=== PATIENT | male | born 1970 | race Caucasian/White ===

== ENCOUNTER 2016-11-20 17:36 | Inpatient (IN) | payer BC ==
[~2016-11-20] VITALS: Ht 170.2 cm; Wt 80.5 kg
[2016-11-20] MEDS ORDERED: SODIUM CHLORIDE 0.9% 1000ML 1,000 ML IV STA (18:10)
[2016-11-20] MEDS ORDERED: MoRPHine SULFATE 2 MG/ML CARP IV STA (18:10)
[2016-11-20] MEDS ORDERED: ONDANSETRON INJ 2 MG/ML 2 ML VIAL IV STA (18:10)
[2016-11-20] MEDS ORDERED: ACETAMINOPHEN IV 650 MG in EMPTY BAG 0 ML IV ONE (18:15)
[2016-11-20] MEDS ORDERED: PIPERACILLIN/TAZOBACTAM 4.5 GM/100ML D5W IV STA (18:20)
[2016-11-20] MEDS ORDERED: OPTIRAY 320 IV PRN (18:30)
--- NOTE | 2016-11-20 18:36 | DIAGNOSTIC IMAGING REPORT ---
CHEST ONE VIEW PORTABLE CLINICAL HISTORY: epigastric abd pain/cough dyspnea COMPARISON STUDY: No previous studies for comparison. FINDINGS: Right upper lobe infiltrate. Lungs otherwise appear clear. Minimal atelectasis left base. IMPRESSION: Right upper lobe infiltrate Electronically signed by: Julian Singh M.D. 11/20/2016 6:35 PM Dictated Date/Time: 11/20/2016 6:35 PM
[2016-11-20 18:42] LABS: BASO % 0.1 %; BASO ABS # 0.01 K/uL (0-0.2); COMPLETE YES; EOS % 0.1 %; HEMATOCRIT 38.7 % (42-52); IG% 0.3 %; LYMPH ABS # 0.94 K/uL (1.2-3.4); MEAN CELL VOLUME 87.4 fL (80-100); MEAN CORPUSCULAR HEMOGLOBIN 31.2 pg (25-34); MEAN CORPUSCULAR HGB CONC 35.7 g/dl (32-36); MEAN PLATELET VOLUME 9.6 fL (7.4-10.4); MONO % 9.3 %; NEUT % 82.2 %; PLATELET COUNT 268 K/uL (130-400); RED BLOOD COUNT 4.43 M/uL (4.7-6.1); WHITE BLOOD COUNT 11.78 K/uL (4.8-10.8)
[2016-11-20 18:53] LABS: ISTAT CREATININE 0.9 mg/dl (0.6-1.3); ISTAT HEMOGLOBIN 13.9 g/dl (14.0-18.0); ISTAT IONIZED CALCIUM 1.19 mmol/l (1.12-1.32)
[2016-11-20 18:57] LABS: INR 1.1 (0.9-1.1); PARTIAL THROMBOPLASTIN RATIO 1.2; PROTHROMBIN TIME (PATIENT) 11.3 SECONDS (9.0-12.0)
[2016-11-20 19:00] LABS: ALT/SGPT 50 U/L (12-78); AST/SGOT 27 U/L (15-37); BLOOD UREA NITROGEN 13 mg/dl (7-18); BUN/CREATININE RATIO 11.9 (10-20); CALCIUM 9.3 mg/dl (8.5-10.1); CARBON DIOXIDE 26 mmol/L (21-32); CHLORIDE 101 mmol/L (98-107); GLUCOSE 103 mg/dl (70-99); MAGNESIUM 2.1 mg/dl (1.8-2.4); POTASSIUM 3.9 mmol/L (3.5-5.1); SODIUM 136 mmol/L (136-145)
[2016-11-20] MEDS ORDERED: CLINDAMYCIN IV 900 MG in DEXTROSE 5% ADD-VANTAGE 100ML 100 ML IV ONE (19:00)
[2016-11-20 19:03] LABS: ALB/GLOB RATIO 0.9 (0.9-2); ALKALINE PHOSPHATASE 64 U/L (45-117)
--- NOTE | 2016-11-20 20:15 | DIAGNOSTIC IMAGING REPORT ---
ABDOMEN AND PELVIS CT WITH IV CONTRAST CT DOSE: HISTORY: Pain. Nausea. diffuse abd pain w/ guarding TECHNIQUE: Multiaxial CT images of the abdomen and pelvis were performed following the use of intravenous contrast. COMPARISON STUDY: None. FINDINGS: Trace pleural fluid and atelectasis right base. Left base is clear. Liver is uniform throughout. Kidneys are negative for hydronephrosis. Pancreas is uniform. Abdominal bowel pattern is nonobstructive. The appendix is normal. Subtle wall thickening of the sigmoid suggesting a low-grade sigmoid colitis. No evidence for abscess collection or obstruction. No evidence for pneumatosis. IMPRESSION: Mild nonspecific sigmoid colitis. 2. Study is otherwise negative. 3. The appendix is normal. Electronically signed by: Julian Singh M.D. 11/20/2016 8:13 PM Dictated Date/Time: 11/20/2016 8:11 PM
--- NOTE | 2016-11-20 20:19 | DIAGNOSTIC IMAGING REPORT ---
CHEST CTA for PULMONARY ARTERIES CT DOSE: 732.72 mGy.cm HISTORY: Pneumonia cough TECHNIQUE: Multiaxial CT images of the chest were performed following the intravenous administration of contrast to evaluate the pulmonary arteries. Maximal intensity projection images were also obtained. COMPARISON STUDY: Chest films same date FINDINGS: Consolidative right upper lobe infiltrate. Lung bases are clear. Slight bibasilar interstitial prominence. Trace pleural fluid right base. Thoracic aorta is normal in course and caliber. Pulmonary vasculature enhances appropriately. Slight bibasilar interstitial prominence. IMPRESSION: 1. Study is negative for pulmonary embolus. 2. Negative thoracic aorta. 3. Consolidative infiltrate right upper lobe. 4. Slight bibasilar interstitial prominence. 5. The consolidative infiltration be followed to resolution to exclude the low possibility of an underlying lesion Electronically signed by: Julian Singh M.D. 11/20/2016 8:17 PM Dictated Date/Time: 11/20/2016 8:14 PM
[2016-11-20] MEDS ORDERED: AZITTAB PO (21:02)
[2016-11-20] MEDS ORDERED: BISM262T3 PO (21:02)
[2016-11-20 22:21] LABS: URINE APPEARANCE CLEAR (CLEAR); URINE BILIRUBIN NEG (NEG); URINE COLOR YELLOW; URINE NITRITE NEG (NEG); URINE PH 6.5 (4.5-7.5); URINE SPECIFIC GRAVITY > 1.045 (1.000-1.030); UROBILINOGEN NEG (NEG); ZZUR CULT IF INDIC CLEAN CATCH NO
[2016-11-20 22:35] LABS: MANUAL MICROSCOPIC REQUIRED? NO; REVIEW REQ? NO
[2016-11-20] MEDS ORDERED: ALBUT/IPRATROP 3MG/0.5MG NEB 3 ML VIAL INH PRN (22:45)
[2016-11-20] MEDS ORDERED: ACETAMINOPHEN 325 MG TAB PO PRN (22:45)
[2016-11-20] MEDS ORDERED: ZOLPIDEM TARTRATE 5 MG TAB PO PRN (22:45)
[2016-11-20] MEDS ORDERED: ONDANSETRON INJ 2 MG/ML 2 ML VIAL IV PRN (22:45)
[2016-11-20] MEDS ORDERED: MAGNESIUM HYDROXIDE SUSP 30 ML UDC PO PRN (22:45)
[2016-11-20] MEDS ORDERED: ALUMINUM/MAGNESIUM/SIMETH (MAALOX MAX) 30 ML UDC PO PRN (22:45)
--- NOTE | 2016-11-20 23:03 | History and Physical ---
History & Physical Date & Time of Service: Nov 20, 2016 at 22:46 Chief Complaint: Body Ache, Fever, Severe Abdominal Pain Primary Care Physician: Celi Srinivasan M.D. History of Present Illness Source: patient 46 y/o M who denies any active medical issues. Pt developed abdominal pain and intense nausea without vomiting 3 days prior. Around the same time he developed a cough and fever and presented to an urgent care center. He was given Zithromax for a presumed URI and sent home. Over the next 2 days his abdominal pain and nausea persisted while his cough and fever appeared to worsen prompting him to visit the ER. A CT of both the chest and abdomen revealed mild sigmoid colitis and a R upper lobe consolidation. The pt is not significantly SOB. He denies diarrhea or constipation. He does not recall any regurgitation or aspiration. He is admitted primarily for a pneumonia that has failed outpt treatment. 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 Smoking Status: Never Smoker Alcohol Use: occasionally Drug Use: none Occupational Status: employed Multi-Drug Resistant Organisms History of MDRO: No Allergies Coded Allergies: No Known Allergies (Unverified , 11/20/16) Home Medications Scheduled Azithromycin (Zithromax Z-Donnell), 1 PKT PO UD Bismuth Subsalicylate (Pepto Bismol Chew Tab), 2 TAB PO PRN UD Review of Systems Constitutional: + chills, + fatigue, + fever, No sweats, No weight loss Eyes: No eye pain, No worsening of vision ENT: No hearing loss, No nasal symptoms, No unusual epistaxis Respiratory: + cough, + sputum, No shortness of breath, No wheezing Cardiovascular: No PND, No chest pain, No orthopnea Abdomen: + nausea, + pain, No constipation, No diarrhea, No vomiting Musculoskeletal: No joint pain, No muscle pain Genitourinary - Male: No dysuria, No hematuria Neurologic: No memory loss, No paralysis, No weakness Psychiatric: No depression symptoms Endocrine: No fatigue Hematologic / Lymphatic: No abnormal bleeding/bruising Integumentary: No rash Allergic / Immunologic: No environmental allergies Physical Exam Vital Signs Date Time Temp Pulse Resp B/P Pulse Ox O2 Delivery O2 Flow Rate FiO2 11/20/16 21:40 37.2 79 20 111/68 97 Room Air 11/20/16 20:18 86 11/20/16 19:30 89 20 130/84 97 Room Air 11/20/16 18:23 97 11/20/16 17:48 38.7 101 20 112/75 97 Room Air General Appearance: WD/WN, no apparent distress Head: normocephalic, atraumatic Eyes: normal inspection, EOMI ENT: normal ENT inspection, pharynx normal Neck: supple, no JVD Respiratory/Chest: chest non-tender, lungs clear, normal breath sounds, no respiratory distress, no accessory muscle use Cardiovascular: regular rate, rhythm, no edema, no gallop, no JVD, no murmur, normal peripheral pulses Abdomen/GI: normal bowel sounds, non tender, soft, + tenderness (diffuse - mild ) Back: normal inspection, no CVA tenderness Extremities/Musculoskelatal: normal inspection, no calf tenderness, normal capillary refill, no pedal edema, normal range of motion Neurologic/Psych: 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 II-XII nml as tested, no motor/sensory deficits, alert, normal mood/affect, normal reflexes, oriented x 3 Skin: normal color, warm/dry, no rash Diagnostics Laboratory Results Results Past 24 Hours Test 11/20/16 18:18 11/20/16 18:25 11/20/16 18:31 11/20/16 18:35 Range/Units Influenza Type A Antigen Neg for Influ A NEG Influenza Type B Antigen Neg for Influ B NEG White Blood Count 11.78 4.8-10.8 K/uL Red Blood Count 4.43 4.7-6.1 M/uL Hemoglobin 13.8 14.0-18.0 g/dL Hematocrit 38.7 42-52 % Mean Corpuscular Volume 87.4 80-100 fL Mean Corpuscular Hemoglobin 31.2 25-34 pg Mean Corpuscular Hemoglobin Concent 35.7 32-36 g/dl Platelet Count 268 130-400 K/uL Mean Platelet Volume 9.6 7.4-10.4 fL Neutrophils (%) (Auto) 82.2 % Lymphocytes (%) (Auto) 8.0 % Monocytes (%) (Auto) 9.3 % Eosinophils (%) (Auto) 0.1 % Basophils (%) (Auto) 0.1 % Neutrophils # (Auto) 9.69 1.4-6.5 K/uL Lymphocytes # (Auto) 0.94 1.2-3.4 K/uL Monocytes # (Auto) 1.10 0.11-0.59 K/uL Eosinophils # (Auto) 0.01 0-0.5 K/uL Basophils # (Auto) 0.01 0-0.2 K/uL RDW Standard Deviation 38.9 36.4-46.3 fL RDW Coefficient of Variation 12.1 11.5-14.5 % Immature Granulocyte % (Auto) 0.3 % Immature Granulocyte # (Auto) 0.03 0.00-0.02 K/uL Erythrocyte Sedimentation Rate 60 0-14 mm/hr Prothrombin Time 11.3 9.0-12.0 SECONDS Prothromb Time International Ratio 1.1 0.9-1.1 Activated Partial Thromboplast Time 31.3 21.0-31.0 SECONDS Partial Thromboplastin Ratio 1.2 Sodium Level 136 136-145 mmol/L Potassium Level 3.9 3.5-5.1 mmol/L Chloride Level 101 98-107 mmol/L Carbon Dioxide Level 26 21-32 mmol/L Anion Gap 9.0 19.0 16-25 mmol/L Blood Urea Nitrogen 13 7-18 mg/dl Creatinine 1.10 0.60-1.40 mg/dl Est Creatinine Clear Calc Drug Dose 86.2 ml/min Estimated GFR () 93.5 Estimated GFR (Non- 80.6 BUN/Creatinine Ratio 11.9 10-20 Random Glucose 103 70-99 mg/dl Calcium Level 9.3 8.5-10.1 mg/dl Magnesium Level 2.1 1.8-2.4 mg/dl Total Bilirubin 0.5 0.2-1 mg/dl Aspartate Amino Transf (AST/SGOT) 27 15-37 U/L Alanine Aminotransferase (ALT/SGPT) 50 12-78 U/L Alkaline Phosphatase 64 45-117 U/L Total Creatine Kinase 103 39-308 U/L Creatine Kinase MB < 0.5 0.5-3.6 ng/ml Creatine Kinase MB Ratio 0-3.0 C-Reactive Protein 16.30 0-0.29 mg/dl Total Protein 8.1 6.4-8.2 gm/dl Albumin 3.9 3.4-5.0 gm/dl Globulin 4.2 2.5-4.0 gm/dl Albumin/Globulin Ratio 0.9 0.9-2 Lipase 79 73-393 U/L Bedside Lactic Acid Venous 0.85 0.90-1.70 mmol/L Bedside Hemoglobin 13.9 14.0-18.0 g/dl Bedside Hematocrit 41 42-52 % Bedside Sodium 136 135-144 mEq/L Bedside Potassium 3.9 3.3-5.0 mEq/L Bedside Chloride 98 101-112 mEq/L Bedside Total CO2 24 24-31 mEq/l Bedside Blood Urea Nitrogen 14 7-18 mg/dl Bedside Creatinine 0.9 0.6-1.3 mg/dl Bedside Glucose (other) 112 70-99 mg/dl Bedside Ionized Calcium (Juliet) 1.19 1.12-1.32 mmol/l Test 11/20/16 18:39 11/20/16 21:45 Range/Units Bedside Troponin I 0.010 0-0.045 ng/ml Urine Color YELLOW Urine Appearance CLEAR CLEAR Urine pH 6.5 4.5-7.5 Urine Specific Crockett > 1.045 1.000-1.030 Urine Protein NEG NEG Urine Glucose (UA) NEG NEG Urine Ketones TRACE NEG Urine Occult Blood NEG NEG Urine Nitrite NEG NEG Urine Bilirubin NEG NEG Urine Urobilinogen NEG NEG Urine Leukocyte Esterase NEG NEG Microbiology Results 11/20/16 Blood Culture, Received Pending 11/20/16 Blood Culture, Received Pending Diagnostic Radiology CT abdomen: Sigmoid colitis CT chest: RUL consolidation EKG NSR - incomplete RBBB Impression Assessment and Plan 46 y/o M who denies any active medical issues. Pt developed abdominal pain and intense nausea without vomiting 3 days prior. Around the same time he developed a cough and fever and presented to an urgent care center. He was given Zithromax for a presumed URI and sent home. Over the next 2 days his abdominal pain and nausea persisted while his cough and fever appeared to worsen prompting him to visit the ER. A CT of both the chest and abdomen revealed mild sigmoid colitis and a R upper lobe consolidation. The pt is not significantly SOB. He denies diarrhea or constipation. He does not recall any regurgitation or aspiration. He is admitted primarily for a pneumonia that has failed outpt treatment. 1) Pneumonia - failed outpt Zithromax - location of infiltrate is unusual - no inherent risk factors for TB are present. It may be that he aspirated without realizing or during sleep as he does describe intense nausea for three days. We will treat with Levaquin and Flagyl as this may benefit his colitis as well. Duonebs provided PRN. Sputum culture requested. 2) Sigmoid colitis - pain control, antiemetics, Abx as above - stool culute requested. Full code - Heparin prophylaxis Total time for this admit including review of records, labs, meds imaging - discussion with ER attending and pt - 35 min Level of Care Med/Surg Resuscitation Status FULL RESUSCITATION VTE Prophylaxis VTE Risk Assessment Done? Y/N: Yes Risk Level: Low Given or contraindicated: Unfractionated heparin SQ
[2016-11-20] MEDS ORDERED: MoRPHine SULFATE 2 MG/ML CARP IV PRN (23:15)
[2016-11-21] MEDS ORDERED: METRONIDAZOLE / NSS 500 MG in PREMIXED NSS 100 ML IV SCH (02:30)
[2016-11-21] MEDS ORDERED: POLYETHYLENE (MIRALAX) 17 GM PACK PO PRN (02:30)
[2016-11-21] MEDS: NSS + 20MEQ KCL 1000ML 1,000 ML IV SCH ×2 (02:39→11:09)
[2016-11-21] MEDS ORDERED: LEVOFLOXACIN / D5W 750 MG in PREMIXED IN D5W 150 ML IV SCH (03:00)
[2016-11-21 04:27] VITALS: BP 146/86; PULSE 71; TEMP 36.7; Ht 170.2 cm; Wt 80.5 kg
[2016-11-21] MEDS ORDERED: HEPARIN SOD 5000 UNIT/0.5 ML CARP SQ SCH (06:00)
[2016-11-21 07:41] VITALS: BP 121/78; PULSE 85; TEMP 36.9; O2SAT 94
[2016-11-21] MEDS ORDERED: PANTOprazole SOD 40 MG TAB PO ONE (09:30)
[2016-11-21] MEDS ORDERED: RANITIDINE HCL 150 MG TAB PO ONE (09:30)
[2016-11-21 10:03] VITALS: O2SAT 94
[2016-11-21 11:10] VITALS: BP 123/80; PULSE 72; TEMP 37; O2SAT 99
[2016-11-21] MEDS ORDERED: LVQ750 PO (12:13)
[2016-11-21 12:21] VITALS: BP 123/80; PULSE 72; TEMP 37; O2SAT 99
[2016-11-21] MEDS ORDERED: NURSING VERBAL MED ORDER ONE (12:45)
[2016-11-21] MEDS ORDERED: IPRATROPIUM BROMIDE/ALBUTEROL respimat INH INH SCH (14:30)
--- NOTE | 2016-11-21 15:02 | Discharge Instructions ---
Discharge Instructions Admission Reason for Admission: Pneumonia (Jonatan Goel MD) Discharge Discharge Diagnosis / Problem: Community acquired pneumonia (Jonatan Goel MD) Discharge Goals Goal(s): Decrease discomfort, Increase independence (Jonatan Goel MD) Activity Recommendations Activity Limitations: per Instructions/Follow-up section Rest recommended for 1 week, keep hydrated. (Jonatan Goel MD) Instructions / Follow-Up Instructions / Follow-Up You were admitted to [facility] and diagnosed with community acquired pneumonia with CXR and CT scan consistent with right upper lobe pneumonia. No pulmonary embolism was found. You were treated initially with IV antibiotics and have now been switched to oral levaquin to complete a full course. You have also been prescribed a Combivent inhaler which you should take as required for cough, chest tightness or wheezing. For your epigastric pain this is most likely stress induced gastritis and we recommend taking zantac for this and follow up with your PCP. CT of your abdomen also showed non specific colitis presumed to be infective. Stool cultures are pending at discharge. Recommend follow up with your PCP regarding this. Recommend rest for the next 7 days, keeping well hydrated and follow up with your PCP within the next week. Recommend a repeat CXR to show complete resolution in 8 weeks given large amount of consolidation seen. (Jonatan Goel MD) Current Hospital Diet Patient's current hospital diet: Regular Diet (Jonatan Goel MD) Discharge Diet Recommended Diet: Regular Diet (Jonatan Goel MD) Pending Studies Studies pending at discharge: yes List of pending studies: Urine legionella Blood cultures Sputum culture Stool culture (Jonatan Goel MD) Work Instructions Return To Work: 1 week Lifting Limitations: none Additional Instructions: Keep well hydrated and rest for 1 week. Pneumonia takes weeks to fully recover from so recommend gradual return to more intense activty after 1 week. (Jonatan Goel MD) Medical Emergencies . Who to Call and When: Medical Emergencies: If at any time you feel your situation is an emergency, please call 911 immediately. . (Jonatan Goel MD) Non-Emergent Contact Non-Emergency issues call your: Primary Care Provider . (Jonatan Goel MD) . "Provider Documentation" section prepared by Jonatan Goel. (Jonatan Goel MD) Attending Attestation: Pt seen & examined with PGY2 Dr. Jonatan Goel on the day of discharge and I agree with his discharge instructions as outlined. Jonatan Casillas MD (Jonatan Casillas MD) VTE Core Measure Inpt VTE Proph given/why not?: Refusal of treatmnt by pt (Jonatan Goel MD)
[2016-11-21] MEDS ORDERED: RANI150T3 PO (15:09)
[2016-11-21] MEDS ORDERED: IPRA1AER2 INH (15:10)
--- NOTE | 2016-11-21 18:28 | Discharge Summary ---
Discharge Summary Admission Date: Nov 20, 2016 at 22:38 Discharge Date: Nov 21, 2016 Discharge Disposition: Home Principal Diagnosis: Community Acquired Pneumonia Problems/Secondary Diagnoses: Probable stress induced gastritis Mild non specific sigmoid colitis (Jonatan Goel MD) Procedures: CT chest - IMPRESSION: 1. Study is negative for pulmonary embolus. 2. Negative thoracic aorta. 3. Consolidative infiltrate right upper lobe. CT abd/pelvis - sigmoid colitis (Jonatan Casillas MD) Medication Reconciliation New Medications: Ranitidine Hcl (Zantac) 150 Mg Tab 1 TAB PO BID for 30 Days, #60 TAB 5 Refills Ipratropium-Albuterol (Combivent Respimat) 1 Aer Aer 1 PUFFS INH QID, #1 Use for chest tightness, cough or wheezing Levofloxacin (Levofloxacin) 750 Mg Tab 750 MG PO DAILY@2200 for 9 Days, TAB Continued Medications: Bismuth Subsalicylate (Pepto Bismol Chew Tab) 262 Mg Tab 2 TAB PO PRN UD, TAB Discontinued Medications: Azithromycin (Zithromax Z-Donnell) 250 Mg Tab 1 PKT PO UD for 5 Days, #1 PKT Discharge Exam No acute issues overnight. He feels much better this morning and ordered regular diet. Tolerated the diet well without any nausea or vomiting and keen to go home. He is a non smoker with no known lung disease, no recent travel Hx or exposure to people with pneumonia. Physical Exam: General Appearance: WD/WN, no apparent distress Respiratory/Chest: no respiratory distress, no accessory muscle use, + crackles (right mid zone) Cardiovascular: regular rate, rhythm, no murmur Abdomen / GI: normal bowel sounds, soft, + tenderness (epigastric tenderness ) Extremities: no pedal edema, normal range of motion Neurologic/Psychiatric: alert Skin: normal color, warm/dry, no rash (Jonatan Goel MD) Hospital Course Mr Ballard was admitted to [facility] for fever and cough. He failed O/P treatment with azithromycin for presumed URI. CTPA showed right upper lobe consolidation, no pulmonary embolism. He was also have abdominal pain and CT showed mild non specific sigmoid colitis. He was treated overnight with IV fluids and Levaquin (initial antibiotics vancomycin and Zosyn were d/c' d after first dose). He recovered well overnight and is now keen to go home and medically stable for discharge. He was started on a Combivent inhaler to help aerate his lungs and should continue to use the incentive spirometer. He will complete a full course of Levaquin and was recommended to take a week off work, keep hydrated and rest. Recommended to follow up with his PCP within the next week. Recommend given extent of consolidation to have a CXR to test to clear in approximately 8 weeks. Total Time Spent: Less than 30 minutes This includes examination of the patient, discharge planning, medication reconciliation, and communication with other providers. (Jonatan Goel MD) Resident Physician Supervision Note: I was present with PGY2 Dr. Jonatan Goel during the discharge history and exam. I discussed the case with the resident and agree with the findings and plan as documented in this discharge summary. Any exceptions or clarifications are listed here: none. 46yo male with no PMH who presented with a febrile illness of several days duration and was found to have a RUL pneumonia. He denied any recent travel, sick contacts, HIV risk factors, chronic lung disease, or any recent weight loss/chronic constitutional symptoms. He quickly improved with IV fluids and IV antibiotics. He will discharge to home with a course of levaquin. Urine for legionella was pending at discharge. In light of the unusual location and consolidative nature of the RUL pneumonia along with his young age he was counseled about the importance of a repeat cxr and/or CT chest in 4-6 weeks to ensure there is radiographic resolution of the pneumonia. He voiced understanding. discharge exam: gen - nontoxic, NAD heart - RRR, s1, s2 lungs - rales RUL, minimal end-exp wheezing b/l abd - soft, no HSM Documented By: Jonatan Casillas MD (Jonatan Casillas MD) Discharge Instructions Please refer to the electronic Patient Visit Report (Discharge Instructions) for additional information. (Jonatan Goel MD) Follow-Up Follow up with his PCP within the next week. (Jonatan Goel MD) Additional Copies To Celi Srinivasan M.D. Resident Tracking Resident Involvement: Resident Care Provided Care Provided: Adult [facility] (Jonatan Goel MD)
[2016-11-21] MEDS ORDERED: RANITIDINE HCL 150 MG TAB PO SCH (20:00)
[2016-11-21] MEDS ORDERED: LEVOFLOXACIN 750 MG TAB PO SCH (22:00)
[2016-11-22] MEDS ORDERED: PANTOprazole SOD 40 MG TAB PO SCH (08:00)
--- NOTE | 2016-11-22 23:41 | EMERGENCY ROOM VISIT NOTE ---
History First contact with patient: 18:01 Chief Complaint: ABDOMINAL PAIN Stated Complaint: PNEUMONIA Nursing Triage Summary: melly with abdominal pain and head ache for two days. saw [facility] given z pack told if not better to come to er/ now with fever and abdominal pain worse History of Present Illness The patient is a 46 year old male who presents to the Emergency Department by private vehicle for evaluation of his fever, bodyaches, and abdominal pain. The patient reports that he developed epigastric abdominal pain since Friday. He is also headache headache. He developed a fever yesterday. He was seen at a walk-in clinic and had a chest x-ray performed as well as urinalysis. Chest x -ray was concerning for possible pneumonia. He was provided a Z-Donnell. The patient has been using ibuprofen for his fever with minimal relief of symptoms. He reports turning in his stomach and GERD-like symptoms as well. He reports reflux type symptoms when he lays flat. The patient reports a mild cough. He rates his current discomfort as an 8/10. He denies any dizziness, lightheadedness, palpitations, shortness of breath, hemoptysis, hematemesis, hematochezia, melena, hematuria, or dysuria. He rates his current discomfort as an 8/10. Review of Systems A complete 10-point Review of Systems was discussed with the patient, with pertinent positives and negatives listed in the History of Present Illness. All remaining Review of Systems questions can be considered negative unless otherwise specified. Past Medical/Surgical History Medical Problems: (1) Pneumonia Social History Smoking Status: Never Smoker Smokeless Tobacco Use: No Drug Use: none Marital Status: Housing Status: lives with family Occupation Status: employed Current/Historical Medications Scheduled Bismuth Subsalicylate (Pepto Bismol Chew Tab), 2 TAB PO PRN UD Ipratropium-Albuterol (Combivent Respimat), 1 PUFFS INH QID Levofloxacin (Levofloxacin), 750 MG PO DAILY@2200 Ranitidine Hcl (Zantac), 1 TAB PO BID Allergies Coded Allergies: No Known Allergies (Unverified , 11/20/16) Physical Exam Vital Signs Date Time Temp Pulse Resp B/P Pulse Ox O2 Delivery O2 Flow Rate FiO2 11/20/16 21:40 37.2 79 20 111/68 97 Room Air 2/15/17 20:18 86 11/20/16 19:30 89 20 130/84 97 Room Air 11/20/16 18:23 97 11/20/16 17:48 38.7 101 20 112/75 97 Room Air Pain Rating (0-10): 8 Physical Exam VITAL SIGNS - Vital signs and nursing notes were reviewed. GENERAL - 46-year-old male appearing his stated age who is in no acute distress. Communicates well with provider and answers questions appropriately. HEAD - NC/AT. EYES - PERRL with EOMI bilaterally. Sclera anicteric. Palpebral conjunctiva pink and moist with no injection noted. EARS - No deformities of external structures noted on gross examination bilaterally. No pain elicited with palpation of the tragus bilaterally. External auditory canals without discharge or otorrhea. Tympanic membranes pearly evans without retraction or bulging. NOSE - Midline and without cyanosis. No epistaxis or purulent drainage noted. Septum midline without deviation or septal hematoma noted. MOUTH/OROPHARYNX - Without perioral cyanosis. Buccal mucosa pink and moist and without leukoplakia. Tongue midline with equal elevation of palate bilaterally. No tonsillar hypertrophy, erythema, or exudates noted. Good dentition noted. NECK - Neck with FROM. Supple to palpation. No nuchal rigidity. LUNGS - Chest wall symmetric without accessory muscle use, intercostals retractions, or central cyanosis. Normal vesicular breath sounds CTA B/L. No wheezes, rales, or rhonchi appreciated. CARDIAC - RRR with S1/S2. No murmur, rubs, or gallops appreciated. ABDOMEN - Abdominal contour flat and without pulsations or visible masses. Negative Gautam's or Augustin Fonseca's Signs. BS normoactive all four quadrants. Moderate tenderness to palpation appreciated diffusely throughout the abdomen. Mild guarding. No Rebound Tenderness. Negative Rovsing's. Negative Barahona's. No palpable masses, hepatosplenomegaly, or ascites noted. EXTREMITIES - No clubbing or peripheral cyanosis. No pretibial edema present. +3 /5 radial and dorsalis pedis pulses palpated throughout. PSYCH - A&Ox3 and cooperates fully with examiner. Pt is very pleasant and interacts well with examiner. Medical Decision & Procedures ER Provider Diagnostic Interpretation: Radiological imaging and reports were reviewed by myself. Radiologist's Interpretation as follows: CHEST ONE VIEW PORTABLE CLINICAL HISTORY: epigastric abd pain/cough dyspnea COMPARISON STUDY: No previous studies for comparison. FINDINGS: Right upper lobe infiltrate. Lungs otherwise appear clear. Minimal atelectasis left base. IMPRESSION: Right upper lobe infiltrate CHEST CTA for PULMONARY ARTERIES CT DOSE: 732.72 mGy.cm HISTORY: Pneumonia cough TECHNIQUE: Multiaxial CT images of the chest were performed following the intravenous administration of contrast to evaluate the pulmonary arteries. Maximal intensity projection images were also obtained. COMPARISON STUDY: Chest films same date FINDINGS: Consolidative right upper lobe infiltrate. Lung bases are clear. Slight bibasilar interstitial prominence. Trace pleural fluid right base. Thoracic aorta is normal in course and caliber. Pulmonary vasculature enhances appropriately. Slight bibasilar interstitial prominence. IMPRESSION: 1. Study is negative for pulmonary embolus. 2. Negative thoracic aorta. 3. Consolidative infiltrate right upper lobe. 4. Slight bibasilar interstitial prominence. 5. The consolidative infiltration be followed to resolution to exclude the low possibility of an underlying lesion ABDOMEN AND PELVIS CT WITH IV CONTRAST CT DOSE: HISTORY: Pain. Nausea. diffuse abd pain w/ guarding TECHNIQUE: Multiaxial CT images of the abdomen and pelvis were performed following the use of intravenous contrast. COMPARISON STUDY: None. FINDINGS: Trace pleural fluid and atelectasis right base. Left base is clear. Liver is uniform throughout. Kidneys are negative for hydronephrosis. Pancreas is uniform. Abdominal bowel pattern is nonobstructive. The appendix is normal. Subtle wall thickening of the sigmoid suggesting a low-grade sigmoid colitis. No evidence for abscess collection or obstruction. No evidence for pneumatosis. IMPRESSION: Mild nonspecific sigmoid colitis. 2. Study is otherwise negative. 3. The appendix is normal. Laboratory Results 11/20/16 18:25 Red Blood Count 4.43, Mean Corpuscular Volume 87.4, Mean Corpuscular Hemoglobin 31.2, Mean Corpuscular Hemoglobin Concent 35.7, Mean Platelet Volume 9.6, Neutrophils (%) (Auto) 82.2, Lymphocytes (%) (Auto) 8.0, Monocytes (%) (Auto) 9.3, Eosinophils (%) (Auto) 0.1, Basophils (%) (Auto) 0.1, Neutrophils # (Auto) 9.69, Lymphocytes # (Auto) 0.94, Monocytes # (Auto) 1.10, Eosinophils # (Auto) 0.01, Basophils # (Auto) 0.01 11/20/16 18:25 Test 11/20/16 18:18 11/20/16 18:25 11/20/16 18:31 11/20/16 18:35 Influenza Type A Antigen Neg for Influ A (NEG) Influenza Type B Antigen Neg for Influ B (NEG) White Blood Count 11.78 K/uL (4.8-10.8) Red Blood Count 4.43 M/uL (4.7-6.1) Hemoglobin 13.8 g/dL (14.0-18.0) Hematocrit 38.7 % (42-52) Mean Corpuscular Volume 87.4 fL (80-100) Mean Corpuscular Hemoglobin 31.2 pg (25-34) Mean Corpuscular Hemoglobin Concent 35.7 g/dl (32-36) Platelet Count 268 K/uL (130-400) Mean Platelet Volume 9.6 fL (7.4-10.4) Neutrophils (%) (Auto) 82.2 % Lymphocytes (%) (Auto) 8.0 % Monocytes (%) (Auto) 9.3 % Eosinophils (%) (Auto) 0.1 % Basophils (%) (Auto) 0.1 % Neutrophils # (Auto) 9.69 K/uL (1.4-6.5) Lymphocytes # (Auto) 0.94 K/uL (1.2-3.4) Monocytes # (Auto) 1.10 K/uL (0.11-0.59) Eosinophils # (Auto) 0.01 K/uL (0-0.5) Basophils # (Auto) 0.01 K/uL (0-0.2) RDW Standard Deviation 38.9 fL (36.4-46.3) RDW Coefficient of Variation 12.1 % (11.5-14.5) Immature Granulocyte % (Auto) 0.3 % Immature Granulocyte # (Auto) 0.03 K/uL (0.00-0.02) Erythrocyte Sedimentation Rate 60 mm/hr (0-14) Prothrombin Time 11.3 SECONDS (9.0-12.0) Prothromb Time International Ratio 1.1 (0.9-1.1) Activated Partial Thromboplast Time 31.3 SECONDS (21.0-31.0) Partial Thromboplastin Ratio 1.2 Est Creatinine Clear Calc Drug Dose 86.2 ml/min Estimated GFR () 93.5 Estimated GFR (Non- 80.6 BUN/Creatinine Ratio 11.9 (10-20) Calcium Level 9.3 mg/dl (8.5-10.1) Magnesium Level 2.1 mg/dl (1.8-2.4) Total Bilirubin 0.5 mg/dl (0.2-1) Aspartate Amino Transf (AST/SGOT) 27 U/L (15-37) Alanine Aminotransferase (ALT/SGPT) 50 U/L (12-78) Alkaline Phosphatase 64 U/L (45-117) Total Creatine Kinase 103 U/L (39-308) Creatine Kinase MB < 0.5 ng/ml (0.5-3.6) Creatine Kinase MB Ratio (0-3.0) C-Reactive Protein 16.30 mg/dl (0-0.29) Total Protein 8.1 gm/dl (6.4-8.2) Albumin 3.9 gm/dl (3.4-5.0) Globulin 4.2 gm/dl (2.5-4.0) Albumin/Globulin Ratio 0.9 (0.9-2) Lipase 79 U/L (73-393) Bedside Lactic Acid Venous 0.85 mmol/L (0.90-1.70) Bedside Hemoglobin 13.9 g/dl (14.0-18.0) Bedside Hematocrit 41 % (42-52) Bedside Sodium 136 mEq/L (135-144) Bedside Potassium 3.9 mEq/L (3.3-5.0) Bedside Chloride 98 mEq/L (101-112) Bedside Total CO2 24 mEq/l (24-31) Anion Gap 19.0 mmol/L (16-25) Bedside Blood Urea Nitrogen 14 mg/dl (7-18) Bedside Creatinine 0.9 mg/dl (0.6-1.3) Bedside Glucose (other) 112 mg/dl (70-99) Bedside Ionized Calcium (Juliet) 1.19 mmol/l (1.12-1.32) Test 11/20/16 18:39 11/20/16 21:45 Bedside Troponin I 0.010 ng/ml (0-0.045) Urine Color YELLOW Urine Appearance CLEAR (CLEAR) Urine pH 6.5 (4.5-7.5) Urine Specific [place] > 1.045 (1.000-1.030) Urine Protein NEG (NEG) Urine Glucose (UA) NEG (NEG) Urine Ketones TRACE (NEG) Urine Occult Blood NEG (NEG) Urine Nitrite NEG (NEG) Urine Bilirubin NEG (NEG) Urine Urobilinogen NEG (NEG) Urine Leukocyte Esterase NEG (NEG) Medications Administered Medications (Trade) Dose Ordered Sig/Tiff Route Start Time Stop Time Status Last Admin Dose Admin Sodium Chloride 1,000 ml @ 999 mls/hr Q1H1M STAT IV 11/20/16 18:10 11/20/16 19:10 DC 11/20/16 19:00 999 MLS/HR Acetaminophen/ Empty Bag (Ofirmev IV/ Empty Iv Bag 100ml) 65 ml @ 260 mls/hr NOW ONCE IV 11/20/16 18:15 11/20/16 18:29 DC 11/20/16 19:07 260 MLS/HR Morphine Sulfate (MoRPHine SULFATE INJ) 2 mg NOW STAT IV 11/20/16 18:10 11/20/16 18:15 DC 11/20/16 19:06 2 MG Ondansetron HCl (Zofran Inj) 4 mg NOW STAT IV 11/20/16 18:10 11/20/16 18:15 DC 11/20/16 19:06 4 MG Piperacillin Sod/ Tazobactam Sod 4.5 gm 4.5 gm NOW STAT IV 11/20/16 18:20 11/20/16 18:21 DC 11/20/16 19:07 4.5 GM Clindamycin Phosphate/Dextrose (Cleocin Iv/ Dextrose Add-[place] 100ML) 106 ml @ 100 mls/hr ONE ONCE IV 11/20/16 19:00 11/20/16 20:03 DC 11/20/16 19:07 100 MLS/HR Procedure Patient was placed on the air sampling and monitoring and monitored throughout the entire extent of their stay. In addition, the patient's pulse oximetry was monitored throughout the entire stay. Any abnormalities or aberrancies were addressed appropriately. ECG Indication: chest pain Rate (beats per minute): 91 Rhythm: normal sinus Findings: RBBB, no acute ischemic change, no ectopy Comparison ECG Date: no prior available ED Course Patient was seen and evaluated by myself. Labs were drawn, saline lock in place. Blood cultures were obtained. EKG and chest x-rays were obtained. CT of the abdomen and pelvis with IV contrast was ordered. The patient was treated with IV Tylenol, 2 mg morphine, and formerly grams Zofran. He was hydrated with a 1000 mL normal saline bolus. He received Zosyn intravenously while pending imaging studies. Chest x-ray was concerning for RIGHT upper lobe consolidation. Because of this, chest CT was added in addition to the abdomen/ pelvis CT. Laboratory results demonstrated mild leukocytosis. The patient is not anemic. ESR and CRP are significantly elevated. The patient has no significant electrolyte abnormalities. Cardiac enzymes are otherwise unremarkable. Given the upper lobe pneumonia, the patient was treated with IV clindamycin. CT results as above. Laboratory results and imaging studies were reviewed with the patient and family who acknowledges understanding. The patient was admitted to the hospitalist service for further evaluation and management. Patient admitted in stable condition. Medical Decision Given the patient's presentation and stated complaint, I did elect to perform the above-mentioned workup. The patient resents today with complaints of abdominal pain. His abdomen is moderately tender and with some mild guarding. He does have a fever on presentation as well. The patient is having GERD-like symptoms and sounds like reflux. He also was complaining of some coughing fits. Given his location of pain in the epigastrium, a cardiac evaluation was instituted as well. His x-ray the chest was concerning for consolidation the RIGHT upper lobe. Given the patient's GERD-like symptoms and abdominal discomfort, I did treat the patient with clindamycin for aspiration pneumonia coverage. CT demonstrates a moderate consolidation the RIGHT upper lobe. Thankfully, the patient's abdomen was otherwise unremarkable. The patient's responded well to medications in the emergency department and he was admitted stably to the hospitalist team. In the evaluation and treatment of this patient, the following differential diagnoses were considered: Appendicitis, Diverticulitis, Diverticulosis, Colitis , Ischemic Colitis, Inflammatory Bowel Disease, Irritable Bowel Disease, Testicular Torsion, Kidney Stone, Pyelonephritis, Hydronephrosis, Cholecystitis , Ascending Cholangitis, Choledocholithiasis, GERD, DE, ASC, Dysrhythmia, Angina , Mediastinitis, GERD, Esophagitis, PE, Pneumonia, Bronchitis, Costochondritis, Rib Fracture, Zoster. Impression Primary Impression: Pneumonia Departure Information Dispostion Admitted as an inpatient Condition FAIR Prescriptions Ipratropium-Albuterol (COMBIVENT RESPIMAT) 1 Aer Aer 1 PUFFS INH QID, #1 Use for chest tightness, cough or wheezing Prov: Jonatan Goel MD 11/21/16 Ranitidine Hcl (ZANTAC) 150 Mg Tab 1 TAB PO BID for 30 Days, #60 TAB 5 Refills Prov: Jonatan Goel MD 11/21/16 Levofloxacin (Levofloxacin) 750 Mg Tab 750 MG PO DAILY@2200 for 9 Days, TAB Prov: Jonatan Goel MD 11/21/16 Referrals Celi Srinivasan M.D. (PCP) Forms Call Back Authorization, HOME CARE DOCUMENTATION FORM, IMPORTANT VISIT INFORMATION Patient Instructions My [facility] Work Instructions Return To Work: 1 week Lifting Limitations: none Additional Work Instructions: Keep well hydrated and rest for 1 week. Pneumonia takes weeks to fully recover from so recommend gradual return to more intense activty after 1 week. Problem Qualifiers Primary Impression: Pneumonia Pneumonia type: due to unspecified organism Laterality: right Lung location : upper lobe of lung Qualified Codes: J18.1 - Lobar pneumonia, unspecified organism
[2016-11-25 12:14] LABS: LEGIONELLA ANTIGEN NOT DETECTED
== END 2016-11-21 16:43 | disposition home or self-care (01) | DRG 195 ==
LOC: ENRESERVDT → ENRESERVTM → C.EDB 17:37 → C.4E 22:38
PROVIDERS: ADMIT Internal Medicine; ATTEND Internal Medicine
DX: J18.9 Pneumonia, unspecified organism (principal); K52.9 Noninfective gastroenteritis and colitis, unspecified; K29.70 Gastritis, unspecified, without bleeding; J06.9 Acute upper respiratory infection, unspecified; Z79.899 Other long term (current) drug therapy

== ENCOUNTER → 2017-05-19 | Outpatient (CLI) | payer OTHER, BC ==
[~2017-05-19] MED LIST: BISM262T3 PO; IPRA1AER2 INH; LVQ750 PO; RANI150T3 PO
--- NOTE | 2017-05-19 12:20 | DIAGNOSTIC IMAGING REPORT ---
LEFT HAND MIN 3 VIEWS ROUTINE CLINICAL HISTORY: LEFT HAND 4TH DIGIT trauma. Pain. COMPARISON: None. DISCUSSION: The bones and joint spaces appear intact. There is no evidence of fracture, dislocation or bony disease. There is no evidence for soft tissue swelling. IMPRESSION: Negative study. The above report was generated using voice recognition software. It may contain grammatical, syntax or spelling errors. Electronically signed by: Julian Singh M.D. 05/19/2017 12:19 PM Dictated Date/Time: 05/19/2017 12:18 PM
== END | disposition home or self-care (01) ==
LOC: C.RAD1850 11:38
PROVIDERS: ATTEND Nurse Practitioner Adult Health
DX: S63.275A Dislocation of unspecified interphalangeal joint of left ring finger, initial encounter (principal); X58.XXXA Exposure to other specified factors, initial encounter